=== PATIENT | female | born 1970 | race Caucasian/White ===

== ENCOUNTER 2016-10-02 09:34 | Emergency (ER) ==
[2016-10-02] MEDS ORDERED: VANCOCIN PO ONE (11:01)
--- NOTE | 2016-10-02 11:07 | PROVIDER DOCUMENTATION ---
HPI-Rash/Wound/ReCheck - General Source: patient - History of Present Illness-Dermatology Location: reports: lower extremity (bilateral) Quality: reports: none Onset/Duration: reports: unsure Timing: reports: still present Context/Associated Symptoms: reports: other (venous dermatitis) Similar Symptoms Previously?: No Recently seen or treated by another doctor?: No <Antonia Werner - Last Filed: 10/02/16 11:00> <Umair Pool I - Last Filed: 10/02/16 12:22> - General Chief Complaint: Return/Recheck Stated Complaint: RECHECK Time Seen by Provider: 10/02/16 10:33 Allergies/Adverse Reactions: Allergies Allergy/AdvReac Type Severity Reaction Status Date / Time Penicillins Allergy Severe ITCHING Verified 10/02/16 10:05 Sulfa (Sulfonamide Allergy Severe NAUSEA Verified 10/02/16 10:05 Antibiotics) levofloxacin [From Levaquin] Allergy NAUSEA Verified 10/02/16 10:05 dopamine [Dopamine] AdvReac Intermediate headache, Verified 10/02/16 10:05 restlessness, chest pain, tachycardia Home Medications: Home Medication List Medication Instructions Recorded Confirmed Last Taken Type Citalopram [Celexa] 20 mg PO DAILY 01/21/13 10/02/16 10/02/16 History Furosemide [Lasix] 40 mg PO DAILY 01/21/13 10/02/16 10/02/16 History Lisinopril/Hydrochlorothiazide 1 each PO DAILY 05/26/14 10/02/16 10/02/16 History [Lisinopril-Hctz 20-25 mg Tab] Multivit,Fe,Ca,FA & Min [Thera M 1 each PO DAILY #0 tablet 02/02/15 10/02/16 Rx Plus] Albuterol Sulfate [Ventolin Hfa] 18 gm IH 4XDAY 03/21/16 10/02/16 1 Week Ago History Budesonide/Formoterol Inhaler 2 puff INH RTBID 03/21/16 10/02/16 1 Week Ago History [Symbicort 160/4.5 Microgm Inhaler] Dabigatran Etexilate Mesylate 150 mg PO BID 03/21/16 10/02/16 09/30/16 History [Pradaxa] PRAVAstatin [Pravachol] 40 mg PO DAILY 03/21/16 10/02/16 10/02/16 History Ranitidine HCl 75 mg PO BID 03/21/16 10/02/16 10/02/16 History Allopurinol 100 mg PO DAILY 08/26/16 10/02/16 10/02/16 History Gabapentin [Neurontin] 300 mg PO QHS 08/26/16 10/02/16 10/01/16 History Insulin Degludec [Tresiba 72 units SQ DAILY 08/26/16 10/02/16 10/02/16 History Flextouch U-200] Ergocalciferol (Vitamin D2) 50,000 unit PO DIRECTED 09/13/16 10/02/16 History [Vitamin D2] Insulin Aspart [Novolog Flexpen] 100 unit SQ PRN PRN 09/13/16 10/02/16 3 Days Ago History Fluconazole [Diflucan] 150 mg PO NOW #1 tablet 09/15/16 10/02/16 1 Day Ago Rx Lactobacillus Combination No.8 1 each PO DAILY #30 capsule 09/15/16 10/02/16 Rx [Adult Probiotic] Clindamycin [Cleocin] 300 mg PO Q8H #30 capsule 09/28/16 10/02/16 10/02/16 Rx Clindamycin [Cleocin] 150 mg PO Q6HR #30 capsule 10/02/16 Unknown Rx - History of Present Illness-Dermatology Nature of Presenting Problem: Pt is a 46 yof who came to the ED with a cc of her cellulitis is not healing. Pt reports her left leg is oozing and infected and will not heal. Pt reports shes been to the doctor twice for her legs. (Antonia Werner) Review of Systems - Adult - REVIEW OF SYSTEMS - ADULT Constitutional: denies: chills, fever Eyes: denies: blurred vision, double vision Ears, Nose, Mouth & Throat: reports: no symptoms reported Cardiovascular: reports: no symptoms reported Respiratory: reports: no symptoms reported Gastrointestinal: denies: diarrhea, nausea, vomiting Genitourinary: reports: no symptoms reported Musculoskeletal: reports: no symptoms reported Integumentary: reports: other (chronic venous dermatitis on legs. left leg is infected). denies: hives, itching Neurological: reports: no symptoms reported Psychiatric: reports: no symptoms reported Endocrine: reports: no symptoms reported Hematologic/Lymphatic: reports: no symptoms reported Allergic/Immunologic: reports: no symptoms reported All Other Systems: Reviewed and Negative <Antonia Werner - Last Filed: 10/02/16 11:00> Past History - Adult - PAST MEDICAL HISTORY-ADULT Review of Records: reports: Old Records Reviewed, Nursing Assessment Review Major Childhood Illnesses: reports: denies history Cardiovascular: reports: HTN, hyperlipidemia Respiratory: reports: COPD Gastrointestinal: reports: GERD Obstetrical/Gynecological: reports: denies history Genitourinary: reports: denies history Musculoskeletal: reports: denies history Neurological: reports: denies history Psychiatric: reports: depression Endocrine/Immune: reports: Diabetes, thyroid disorder, other (Morpheus scleraderma) Other Conditions: reports: denies history - PRIOR SURGERIES/PROCEDURES Surgical/Procedure History: reports: cholecystectomy, hysterectomy, other ( right lumpectomy) - PRIOR HOSPITALIZATIONS Prior Hospitalizations: reports: for similar symptoms - IMMUNIZATION STATUS Childhood Immunizations: See Nurse Assessment Flu Vaccine: See Nurse Assessment - FAMILY HISTORY Family History: reviewed, not pertinent <Antonia Werner - Last Filed: 10/02/16 11:00> Physical Exam-General - CONSTITUTIONAL General Appearance: alert, no apparent distress, obese - EYES Eyes: PERRL/EOMI, pink conjunctivae, fundi clear, no AV nicking - HEAD, EARS, NOSE, MOUTH & THROAT HENMT: normocephalic/atraumatic, moist mucous membranes, normal ENT inspection, TMs normal, pharynx normal - NECK Neck: non-tender - RESPIRATORY Respiratory: chest non-tender, lungs clear, normal breath sounds, no pleuratic chest pain, no respiratory distress, no accessory muscle use - CARDIOVASCULAR Cardiovascular: normal peripheral pulses, regular rate, rhythm, no edema, no gallop, no JVD, no murmur - GASTROINTESTINAL (ABDOMEN) Abdominal Exam: normal bowel sounds, non tender, soft - MUSCULOSKELETAL Back Exam: normal inspection, no CVA tenderness, no vertebral tenderness Extremity: pedal edema, swelling, other (chronic venous dermatitis bilateral legs) - SKIN Integumentary: swelling - NEUROLOGIC Neurologic: grossly normal - PSYCHIATRIC Psych/Mental Status: normal mood/affect, normal thought content, normal thought process, oriented x 3 <Antonia Werner - Last Filed: 10/02/16 11:00> Progress <Antonia Werner - Last Filed: 10/02/16 11:00> <Umair Pool I - Last Filed: 10/02/16 12:22> - PLAN OF CARE/RESULTS Progress/Plan/Lab Results: Vital Signs - 24 hr 10/02/16 09:43 Temperature 98.2 F Pulse Rate 95 H Respiratory 20 Rate Blood Pressure 133/77 O2 Sat by Pulse 95 Oximetry Orders Category Date Time Status CBC WITH DIFF [HEME] Stat Lab 10/02/16 11:01 Uncollected (Antonia Werner) Departure <Antonia Werner - Last Filed: 10/02/16 11:00> - Departure Time of Disposition Order: 12:21 Certified Medical Emergency: Emergent <Umair Pool I - Last Filed: 10/02/16 12:22> - Departure DIAGNOSIS: Cellulitis of left lower leg, Diabetes Disposition: HOME 01 Condition: Stable Prescriptions: Clindamycin [Cleocin] 150 mg PO Q6HR #30 capsule Attestation - Scribe Verification/Attestation Scribe:: Antonia Werner Acting as Scribe for:: Umair Pool Scribe documention review:: This chart was documented by a scribe and accurately reflects the service the provider performed and the decisions made by the provider. <Antonia Werner - Last Filed: 10/02/16 11:00> Physician Attestation
[2016-10-02 11:18] LABS: MANUAL DIFF NEEDED? NO
[2016-10-02 11:22] LABS: BASO% 0.9 % (0.0-0.8); EOS# 0.59 X1000 (0.0-0.7); EOS% 7.7 % (0.0-10.0); HEMATOCRIT 38.6 % (37.0-47.0); HEMOGLOBIN 12.5 g/dL (12.0-16.0); IMM GRAN# 0.02 X1000 (0.0-0.04); IMM GRAN% 0.3 % (0.0-0.5); LYMPH# 1.55 X1000 (1.2-3.4); LYMPH% 20.3 % (20.5-51.1); MCH 30.6 PG (27-31); MCHC 32.4 g/dL (33-37); MCV 94.6 FL (81-99); MONO# 0.66 X1000 (0.11-0.59); MONO% 8.7 % (1.7-9.3); NEUT% 62.1 % (42.2-75.2); PLT 405 X1000 (130-400); RBC 4.08 XMIL (4.2-5.4)
[2016-10-02 11:46] LABS: ALBUMIN 3.3 g/dL (3.5-5.0); CALCIUM 9.9 mg/dL (8.8-10.2); POTASSIUM 3.9 mmol/L (3.5-5.1); TOTAL BILIRUBIN 0.58 mg/dL (0.20-1.00); TOTAL PROTEIN 6.3 g/dL (6.3-8.3)
[2016-10-02 12:08] VITALS: BP 113/58
== END 2016-10-02 12:44 | disposition home or self-care (01) ==
LOC: ED 09:34
DX: L03.116 Cellulitis of left lower limb (principal); E11.9 Type 2 diabetes mellitus without complications; R22.43 Localized swelling, mass and lump, lower limb, bilateral; I87.2 Venous insufficiency (chronic) (peripheral); I10 Essential (primary) hypertension; E78.5 Hyperlipidemia, unspecified; J44.9 Chronic obstructive pulmonary disease, unspecified; F32.9 Major depressive disorder, single episode, unspecified; E66.9 Obesity, unspecified; Z79.899 Other long term (current) drug therapy
CPT/HCPCS: 80053; 85025

== ENCOUNTER 2016-10-06 23:02 | Emergency (ER) ==
[2016-10-07] MEDS ORDERED: NORCO-5 PO ONE (00:36)
--- NOTE | 2016-10-07 00:42 | PROVIDER DOCUMENTATION ---
HPI-General Adult - General Chief Complaint: Extremity Pain Stated Complaint: @10/05 0900 LT WRIST INJURY Time Seen by Provider: 10/07/16 00:14 Source: patient Allergies/Adverse Reactions: Patient Allergies Allergy/AdvReac Type Severity Reaction Status Date / Time Penicillins Allergy Severe ITCHING Verified 10/06/16 23:17 Sulfa (Sulfonamide Allergy Severe NAUSEA Verified 10/06/16 23:17 Antibiotics) levofloxacin [From Levaquin] Allergy NAUSEA Verified 10/06/16 23:17 dopamine [Dopamine] AdvReac Intermediate headache, Verified 10/06/16 23:17 restlessness, chest pain, tachycardia Home Medications: Home Medication List Medication Instructions Recorded Confirmed Last Taken Type Citalopram [Celexa] 20 mg PO DAILY 01/21/13 10/02/16 10/02/16 History Furosemide [Lasix] 40 mg PO DAILY 01/21/13 10/02/16 10/02/16 History Lisinopril/Hydrochlorothiazide 1 each PO DAILY 05/26/14 10/02/16 10/02/16 History [Lisinopril-Hctz 20-25 mg Tab] Multivit,Fe,Ca,FA & Min [Thera M 1 each PO DAILY #0 tablet 02/02/15 10/02/16 Rx Plus] Albuterol Sulfate [Ventolin Hfa] 18 gm IH 4XDAY 03/21/16 10/02/16 1 Week Ago History Budesonide/Formoterol Inhaler 2 puff INH RTBID 03/21/16 10/02/16 1 Week Ago History [Symbicort 160/4.5 Microgm Inhaler] Dabigatran Etexilate Mesylate 150 mg PO BID 03/21/16 10/02/16 09/30/16 History [Pradaxa] PRAVAstatin [Pravachol] 40 mg PO DAILY 03/21/16 10/02/16 10/02/16 History Ranitidine HCl 75 mg PO BID 03/21/16 10/02/16 10/02/16 History Allopurinol 100 mg PO DAILY 08/26/16 10/02/16 10/02/16 History Gabapentin [Neurontin] 300 mg PO QHS 08/26/16 10/02/16 10/01/16 History Insulin Degludec [Tresiba 72 units SQ DAILY 08/26/16 10/02/16 10/02/16 History Flextouch U-200] Ergocalciferol (Vitamin D2) 50,000 unit PO DIRECTED 09/13/16 10/02/16 History [Vitamin D2] Insulin Aspart [Novolog Flexpen] 100 unit SQ PRN PRN 09/13/16 10/02/16 3 Days Ago History Fluconazole [Diflucan] 150 mg PO NOW #1 tablet 09/15/16 10/02/16 1 Day Ago Rx Lactobacillus Combination No.8 1 each PO DAILY #30 capsule 09/15/16 10/02/16 Rx [Adult Probiotic] Clindamycin [Cleocin] 300 mg PO Q8H #30 capsule 09/28/16 10/02/16 10/02/16 Rx Clindamycin [Cleocin] 150 mg PO Q6HR #30 capsule 10/02/16 Unknown Rx - History of Present Illness -Gen Adult Nature of Presenting Problems: Pt. is 46 yof that presents with c/o left hand pain after she was pushing herself up out of a chair and felt a pop. Pt. reports now her hand is swollen and bruised. Pt. denies any direct injury or other complaints at time of exam. Location of Pain/Injury: reports: hand(s) (Left). denies: head, face, mouth, neck, chest, upper extremity, abdomen, back, pelvis, genitalia, lower extremity , feet, upper body, lower body, generalized Pain Radiation: reports: no radiation Quality of Pain: reports: aching. denies: burning, cramping, dull, fullness, indigestion, pressure, sharp, stabbing, tearing, throbbing, tightness Severity: reports: moderate. denies: mild, severe Onset/Duration: reports: abrupt, this evening Timing: reports: still present. denies: improving, gone now, resolved prior to arrival, intermittent, constant, changing over time, getting worse Context/Activities at Onset: reports: recent physical stress. denies: recent emotional stress, recent trauma history, possible bad food, cold exposure, out of country travel Modifying Factors: improves with: immobilization. worse with: movement Associated Symptoms: reports: joint pain (left hand). denies: anxiety, arm pain , back/neck pain, chest pain, constipation, cough, diaphoresis, diarrhea, dizziness, EENT symptoms, fatigue, fever/chills, genitourinary problems, headaches, heartburn, loss of appetite, malaise, muscle aches, sinus congestion/ drainage, nausea, rash, seizure, shortness of breath, sensory/motor loss, pain with inspiration, swelling/mass in abdomen, syncope, vomiting, weakness, trouble walking Similar Symptoms Previously?: No Recently seen or treated by another doctor?: No Review of Systems - Adult - REVIEW OF SYSTEMS - ADULT Constitutional: reports: see HPI. denies: chills, fever, fatique, night sweats Eyes: reports: see HPI. denies: discharge, blurred vision, double vision Ears, Nose, Mouth & Throat: reports: see HPI. denies: ear discharge, ear pain, hearing loss, sinus problem, nose pain, loose teeth, mouth/dental pain, throat pain, throat swelling Cardiovascular: reports: see HPI. denies: chest pain, irregular heart rate, orthopnea, syncope Respiratory: reports: see HPI. denies: cough, dyspnea on exertion, pleurisy, shortness of breath, wheezing Gastrointestinal: reports: see HPI. denies: abdominal pain, diarrhea, difficulty swallowing, nausea, vomiting Genitourinary: reports: see HPI. denies: dysuria, hematuria, hesitency, urgency Musculoskeletal: reports: see HPI, joint pain (Left hand). denies: bone pain, back pain, joint swelling, muscle aches, neck pain Integumentary: reports: see HPI. denies: hives, hair loss, itching, rash, skin thickening Neurological: reports: see HPI. denies: ataxia, headache/migraines, numbness, paresthesia, seizure, tremors Psychiatric: reports: see HPI. denies: anxiety, depression, emotional problems , insomnia, panic attacks, suicidal thoughts Past History - Adult - PAST MEDICAL HISTORY-ADULT Review of Records: reports: Old Records Reviewed, Nursing Assessment Review, Medications Reviewed, Social history reviewed & non-contributory. Major Childhood Illnesses: reports: denies history Cardiovascular: reports: HTN, hyperlipidemia Respiratory: reports: COPD Gastrointestinal: reports: GERD Obstetrical/Gynecological: reports: denies history Genitourinary: reports: denies history Musculoskeletal: reports: denies history Neurological: reports: denies history Psychiatric: reports: depression Endocrine/Immune: reports: Diabetes, thyroid disorder, other (Morpheus scleraderma) Other Conditions: reports: denies history - PRIOR SURGERIES/PROCEDURES Surgical/Procedure History: reports: cholecystectomy, hysterectomy, other ( right lumpectomy) - PRIOR HOSPITALIZATIONS Prior Hospitalizations: reports: for similar symptoms - IMMUNIZATION STATUS Childhood Immunizations: See Nurse Assessment Flu Vaccine: See Nurse Assessment - FAMILY HISTORY Family History: reviewed, not pertinent - SOCIAL HISTORY Smoking: non-smoker Physical Exam-General - PHYSICAL EXAM-ADULT Initial Vital Signs Reviewed: Yes - CONSTITUTIONAL General Appearance: alert, mild distress, obese. negative: thin, anxious, lethargic, slow to respond, obtunded, combative - EYES Eyes: PERRL/EOMI, pink conjunctivae. negative: conjuctival exudate, scleral icterus, subconjunctival hemorrhage - HEAD, EARS, NOSE, MOUTH & THROAT HENMT: normocephalic/atraumatic, moist mucous membranes. negative: angioedema, frontal tenderness, maxillary tenderness - NECK Neck: non-tender, full range of motion, supple, normal inspection. negative: lymphadenopathy, trachial deviation, thyromegaly - RESPIRATORY Respiratory: lungs clear, normal breath sounds. negative: crackles, rales, rhonchi, stridor, wheezing - CARDIOVASCULAR Cardiovascular: normal peripheral pulses, regular rate, rhythm, no edema, no JVD , no murmur. negative: extra beats, friction rub, irregularly irregular - CHEST (BREASTS) Chest/Breast: deferred - GASTROINTESTINAL (ABDOMEN) Abdominal Exam: normal bowel sounds, non tender, soft. negative: distended, guarding, rigid, rebound, tenderness, hernia, mass - GENITOURINARY Female Genitalia/Pelvic Exam: deferred Rectal Exam: deferred Hemoccult Exam: deferred - LYMPHATIC Lymphatic: no adenopathy. negative: axilla node tender, cervical node tenderness - MUSCULOSKELETAL Back Exam: normal inspection, no CVA tenderness, no vertebral tenderness. negative: ecchymosis, scoliosis, swelling, vertebral tenderness Extremity: swelling (Left hand), tenderness (Left hand). negative: deformity, erythema, inflammation Peripheral Pulses: radial (R): 2+, radial (L): 2+ - SKIN Integumentary: normal turgor, warm/dry, ecchymosis (Left hand). negative: cyanosis, diaphoresis, erythema, jaundice, mottled, pallor, petechiae, purpura, rash, swelling, tenderness - NEUROLOGIC Neurologic: grossly normal, no motor/sensory deficits. negative: aphasia, facial droop, focal weakness, motor weakness, sensory deficit - PSYCHIATRIC Psych/Mental Status: normal mood/affect, normal thought content, normal thought process, oriented x 3. negative: anxious, paranoid, tearful Progress - PLAN OF CARE/RESULTS Progress/Plan/Lab Results: Discussed results and plan of care with patient. Patient agrees with plan and verbalizes understanding. Vital Signs Temp Pulse Resp BP Pulse Ox 10/06/16 23:10 98.4 F 89 18 144/78 95 Penicillins Allergy (Severe, Verified 10/06/16 23:17) ITCHING makes me feel high as a kite, itches all over Sulfa (Sulfonamide Antibiotics) Allergy (Severe, Verified 10/06/16 23:17) NAUSEA vomiting, dizzy levofloxacin [From Levaquin] Allergy (Verified 10/06/16 23:17) NAUSEA dopamine [Dopamine] Adverse Reaction (Intermediate, Verified 10/06/16 23:17) headache, restlessness, chest pain, tachycardia Citalopram [Celexa] 20 mg PO DAILY 01/21/13 Furosemide [Lasix] 40 mg PO DAILY 01/21/13 Lisinopril/Hydrochlorothiazide [Lisinopril-Hctz 20-25 mg Tab] 1 each PO DAILY Multivit,Fe,Ca,FA & Min [Thera M Plus] 1 each PO DAILY #0 tablet 02/02/15 Albuterol Sulfate [Ventolin Hfa] 18 gm IH 4XDAY 03/21/16 Budesonide/Formoterol Inhaler [Symbicort 160/4.5 Microgm Inhaler] 2 puff INH RTBID 03/21/16 Dabigatran Etexilate Mesylate [Pradaxa] 150 mg PO BID 03/21/16 PRAVAstatin [Pravachol] 40 mg PO DAILY 03/21/16 Ranitidine HCl 75 mg PO BID 03/21/16 Allopurinol 100 mg PO DAILY 08/26/16 Gabapentin [Neurontin] 300 mg PO QHS 08/26/16 Insulin Degludec [Tresiba Flextouch U-200] 72 units SQ DAILY 08/26/16 Ergocalciferol (Vitamin D2) [Vitamin D2] 50,000 unit PO DIRECTED 09/13/16 Insulin Aspart [Novolog Flexpen] 100 unit SQ PRN PRN 09/13/16 Fluconazole [Diflucan] 150 mg PO NOW #1 tablet 09/15/16 Lactobacillus Combination No.8 [Adult Probiotic] 1 each PO DAILY #30 capsule 04/23 Clindamycin [Cleocin] 300 mg PO Q8H #30 capsule 09/28/16 Clindamycin [Cleocin] 150 mg PO Q6HR #30 capsule 10/02/16 Orders Category Date Time Status WRIST COMPLETE LEFT [RAD] Stat Exams 10/06/16 23:18 Taken Hydrocodone/APAP 5 mg/325 mg [[place]-5] Med 10/07/16 00:36 Discontinued 1 each PO NOW ONE - XRAY 1 XRAY: Left XRAY Study: Hand XRAY Interpretation: No Fx Identified (Harvinder) Departure - Departure Time of Disposition Order: 00:44 DIAGNOSIS: Contusion of hand, left Qualifiers: Encounter type: initial encounter Qualified Code(s): S60.222A - Contusion of left hand, initial encounter Disposition: HOME 01 Certified Medical Emergency: Emergent Condition: Stable Additional Instructions: Follow up with primary care physician Follow up with Orthopedic physician if needed Take ibuprofen or tylenol as directed by packaging for pain Return to ED for any concerns or worsening of symptoms ED Follow Up Instructions: You have been treated by a care provider in the Emergency Department. These instructions are being provided to you so you can have an understanding of how to care for yourself upon discharge. Upon discharge from the Emergency Department, you are responsible for making arrangements for follow-up care by a physician of your choice. Take all prescribed medications as directed. Return to the Emergency Department immediately for any new or worsening symptoms. You may call the Physician Referral phone number at [phone] to obtain a list of Physicians who are taking new patients. Attestation - Physician/ [facility] Attestation Patient care was provided by Advanced Practice Provider:: Yes Advanced Practice Provider:: Benita Blanton Advanced Practice Provider documentation review:: The Mid-level provider documentation, treatment plan and medical decision making was reviewed by the physician who agrees with all treatment and medical decision making by the MLP.
[2016-10-07 00:59] VITALS: BP 138/74
--- NOTE | 2016-10-07 08:25 | Diag Imaging Result Document ---
PROCEDURE NAME: WRIST COMPLETE LEFT - 10/06/2016 LEFT WRIST, THREE VIEWS: FINDINGS: No fracture. No dislocation. Longstanding arthritic changes at the base of the thumb similar to 02/09/2015. No other abnormality. IMPRESSION: Stable exam.
== END 2016-10-07 00:59 | disposition home or self-care (01) ==
LOC: ED 23:02
DX: S60.222A Contusion of left hand, initial encounter (principal); M79.642 Pain in left hand; R22.32 Localized swelling, mass and lump, left upper limb; I10 Essential (primary) hypertension; E78.5 Hyperlipidemia, unspecified; J44.9 Chronic obstructive pulmonary disease, unspecified; E11.9 Type 2 diabetes mellitus without complications; F32.9 Major depressive disorder, single episode, unspecified; E66.9 Obesity, unspecified; Z79.4 Long term (current) use of insulin; Z79.899 Other long term (current) drug therapy; X58.XXXA Exposure to other specified factors, initial encounter

== ENCOUNTER 2016-10-11 12:05 | Emergency (ER) ==
[2016-10-11 12:11] VITALS: BP 122/74
[2016-10-11] MEDS ORDERED: MORPHINE IM ONE (13:29)
[2016-10-11] MEDS ORDERED: ZOFRAN ODT PO ONE (13:30)
--- NOTE | 2016-10-11 13:40 | PROVIDER DOCUMENTATION ---
HPI-Musculoskeletal Pain/Inj - GENERAL Chief Complaint: Hip Pain Stated Complaint: L hip pain Time Seen by Provider: 10/11/16 13:25 Source: patient - HX OF PRESENT ILLNESS-MUSKULOSKELTAL Nature of Presenting Problem: 46 y/o morbidly obese F presents to the ED for 1 day hx of L hip pain. Pt states that she noted pain to the hip yesterday with walking. States worse today and pain is 10/10. States can't bear weight. Reports recent hx of cellulitis on LLE that she is still taking Abx for. States chronic R hip pain, not L hip. Denies any back pain or numbness/tingling, bowel/bladder dysfunction. Review of Systems - Adult - REVIEW OF SYSTEMS - ADULT Constitutional: reports: no symptoms reported. denies: chills, fever Eyes: reports: no symptoms reported. denies: blurred vision, double vision Ears, Nose, Mouth & Throat: reports: no symptoms reported. denies: ear pain, nose pain Cardiovascular: reports: no symptoms reported. denies: chest pain, palpitations Respiratory: reports: no symptoms reported. denies: dyspnea on exertion, shortness of breath Gastrointestinal: reports: no symptoms reported. denies: nausea, vomiting Genitourinary: reports: no symptoms reported. denies: dysuria, frequency Musculoskeletal: reports: see HPI, joint pain. denies: back pain, neck pain Integumentary: reports: no symptoms reported. denies: nail changes, rash Neurological: reports: no symptoms reported. denies: numbness, paresthesia Psychiatric: reports: no symptoms reported Endocrine: reports: no symptoms reported. denies: cold intolerance, heat intolerance Hematologic/Lymphatic: reports: no symptoms reported. denies: easy bruising, prolonged bleeding Allergic/Immunologic: reports: no symptoms reported All Other Systems: Reviewed and Negative Past History - Adult - PAST MEDICAL HISTORY-ADULT Review of Records: reports: Nursing Assessment Review, Medications Reviewed Major Childhood Illnesses: reports: denies history Cardiovascular: reports: HTN, hyperlipidemia Respiratory: reports: COPD Gastrointestinal: reports: GERD Obstetrical/Gynecological: reports: denies history Genitourinary: reports: denies history Musculoskeletal: reports: denies history Neurological: reports: denies history Psychiatric: reports: depression Endocrine/Immune: reports: Diabetes, thyroid disorder, other (Morpheus scleraderma) Other Conditions: reports: denies history - PRIOR SURGERIES/PROCEDURES Surgical/Procedure History: reports: cholecystectomy, hysterectomy, other ( right lumpectomy) - PRIOR HOSPITALIZATIONS Prior Hospitalizations: reports: for similar symptoms - IMMUNIZATION STATUS Childhood Immunizations: See Nurse Assessment Flu Vaccine: See Nurse Assessment - FAMILY HISTORY Family History: reviewed, not pertinent - SOCIAL HISTORY Smoking: denies Physical Exam-Injury Related - Physical Exam-Injury Related Initial Vital Signs Reviewed: Yes General Appearance: alert, mild distress, obese Eyes: pink conjunctivae Head, Ears, Nose, Mouth & Throat: normocephalic/atraumatic, moist mucous membranes Neck: normal inspection Respiratory: no respiratory distress Cardiovascular: normal peripheral pulses, regular rate, rhythm Peripheral Pulses: dorsalis-pedis (R): 1+, dorsalis-pedis (L): 1+ Extremity: normal inspection, tenderness (L knee to L hip). negative: abnormal NV exam, deformity, pulse deficit Integumentary: normal color, warm/dry, blanching, other (cellulitis with crusting to LLE; pt states from previous week) Neurologic: negative: aphasia Psych/Mental Status: normal mood/affect, normal thought content, normal thought process, oriented x 3 Progress - PLAN OF CARE/RESULTS Progress/Plan/Lab Results: Orders Category Date Time Status ED: Urine Bedside ORDERED Care 10/11/16 13:44 Inactive PELVIS W/O CONTRAST [CT] Stat Exams 10/11/16 13:29 Draft Morphine Med 10/11/16 13:29 Discontinued 4 mg IM NOW ONE Ondansetron Odt [Zofran Odt] Med 10/11/16 13:30 Discontinued 4 mg PO NOW ONE Vital Signs Temp Pulse Resp BP Pulse Ox 10/11/16 12:09 98.5 F 92 H 20 122/74 98 Penicillins Allergy (Severe, Verified 10/06/16 23:17) ITCHING makes me feel high as a kite, itches all over Sulfa (Sulfonamide Antibiotics) Allergy (Severe, Verified 10/06/16 23:17) NAUSEA vomiting, dizzy levofloxacin [From Levaquin] Allergy (Verified 10/06/16 23:17) NAUSEA dopamine [Dopamine] Adverse Reaction (Intermediate, Verified 10/06/16 23:17) headache, restlessness, chest pain, tachycardia Citalopram [Celexa] 20 mg PO DAILY 01/21/13 Furosemide [Lasix] 40 mg PO DAILY 01/21/13 Lisinopril/Hydrochlorothiazide [Lisinopril-Hctz 20-25 mg Tab] 1 each PO DAILY Multivit,Fe,Ca,FA & Min [Thera M Plus] 1 each PO DAILY #0 tablet 02/02/15 Albuterol Sulfate [Ventolin Hfa] 18 gm IH 4XDAY 03/21/16 Budesonide/Formoterol Inhaler [Symbicort 160/4.5 Microgm Inhaler] 2 puff INH RTBID 03/21/16 Dabigatran Etexilate Mesylate [Pradaxa] 150 mg PO BID 03/21/16 PRAVAstatin [Pravachol] 40 mg PO DAILY 03/21/16 Ranitidine HCl 75 mg PO BID 03/21/16 Allopurinol 100 mg PO DAILY 08/26/16 Gabapentin [Neurontin] 300 mg PO QHS 08/26/16 Insulin Degludec [Tresiba Flextouch U-200] 72 units SQ DAILY 08/26/16 Ergocalciferol (Vitamin D2) [Vitamin D2] 50,000 unit PO DIRECTED 09/13/16 Insulin Aspart [Novolog Flexpen] 100 unit SQ PRN PRN 09/13/16 Fluconazole [Diflucan] 150 mg PO NOW #1 tablet 09/15/16 Lactobacillus Combination No.8 [Adult Probiotic] 1 each PO DAILY #30 capsule 04/23 Clindamycin [Cleocin] 300 mg PO Q8H #30 capsule 09/28/16 Clindamycin [Cleocin] 150 mg PO Q6HR #30 capsule 10/02/16 Discussed results and f/u with orthopedist with the pt and mother. - CT/MRI 1 CT Study: Pelvis Impression: See EMR Report (No acute bony abnormality and no significant arthritic changes to either hip. -per Dr. Lee) Departure - Departure Time of Disposition Order: 14:30 DIAGNOSIS: Hip pain, left Disposition: HOME 01 Certified Medical Emergency: Emergent Condition: Stable Additional Instructions: Take medications as directed. Follow up with orthopedist for further evaluation and management. Ice or heat as needed. ED Follow Up Instructions: You have been treated by a care provider in the Emergency Department. These instructions are being provided to you so you can have an understanding of how to care for yourself upon discharge. Upon discharge from the Emergency Department, you are responsible for making arrangements for follow-up care by a physician of your choice. Take all prescribed medications as directed. Return to the Emergency Department immediately for any new or worsening symptoms. You may call the Physician Referral phone number at [phone] to obtain a list of Physicians who are taking new patients. Prescriptions: Methocarbamol [Robaxin] 500 mg PO BID #30 tablet Tramadol HCl/Acetaminophen [Ultracet Tablet] 1 each PO Q6H PRN #10 tablet PRN Reason: Pain Referrals: None,PCP [Primary Care Provider] - Orquidea Campbell MD [STAFF PHYSICIAN] - Attestation - Physician/ [facility] Attestation Patient care was provided by Advanced Practice Provider:: Yes Advanced Practice Provider:: Tiffany Davison Advanced Practice Provider documentation review:: The Mid-level provider documentation, treatment plan and medical decision making was reviewed by the physician who agrees with all treatment and medical decision making by the MLP.
--- NOTE | 2016-10-11 14:23 | Diag Imaging Result Document ---
PROCEDURE NAME: PELVIS W/O CONTRAST - 10/11/2016 CT BONY PELVIS WITHOUT CONTRAST: FINDINGS: The patient is obese. Neither hip is dislocated. No hip fracture. Hip joints are symmetrical. No significant arthritic changes. No bony remodeling of the femoral heads or acetabula. No separation at the pubic symphysis. The bowel loops in the pelvis are not dilated. The urinary bladder is distended and appears normal. The uterus is small or has been removed. No pelvic mass. The bottom portion of an inferior vena caval filter is included on the first images. There is a small fat filled umbilical hernia. No bowel loop within this. IMPRESSION: No acute bony abnormality and no significant arthritic changes to either hip. A preliminary report was given at 2:08 p.m.
== END 2016-10-11 14:58 | disposition home or self-care (01) ==
LOC: EDBD → ED 12:05
DX: M25.552 Pain in left hip (principal); L03.116 Cellulitis of left lower limb; G89.29 Other chronic pain; M25.551 Pain in right hip; I10 Essential (primary) hypertension; E78.5 Hyperlipidemia, unspecified; J44.9 Chronic obstructive pulmonary disease, unspecified; E11.9 Type 2 diabetes mellitus without complications; F32.9 Major depressive disorder, single episode, unspecified; Z79.4 Long term (current) use of insulin; E66.9 Obesity, unspecified; Z79.899 Other long term (current) drug therapy
CPT/HCPCS: 72192; J2270